=== PATIENT | female | born 1970 | race Caucasian/White ===

== ENCOUNTER 2024-09-06 18:17 | Emergency (ER) | payer OTHER, SELFPAY ==
--- NOTE | ~2024-09-06 | XR_ITS ---
XR hand LT min 3V Ordering provider: Abdi Ortega MD History: . bite . Comparison: None. FINDINGS: BONES: No acute fracture or dislocation. JOINT SPACES: Narrowing of the distal interphalangeal joints. SOFT TISSUES: Unremarkable. IMPRESSION: No acute osseous abnormality left hand. Reviewed, dictated and finalized at location A.
[2024-09-06 19:09] VITALS: BP 146/82; PULSE 82; RESP 17; TEMP 36.5; O2SAT 98
--- NOTE | 2024-09-06 20:08 | ED.ANIMALBIT ---
HPI - Animal Bite General Chief Complaint: Animal Bite Stated Complaint: dog bite Time Seen by Provider: 09/06/24 19:30 History of Present Illness HPI narrative: Patient is a 54-year-old female who presents emergency department this evening status post a dog bite to her left hand. Patient states that this was her dog and she was trying to break up a fight between her 2 dogs and accidentally got bit. Patient has 2 wounds 1 to the palmar aspect and 1 to the dorsum of her left hand. Admits that the dog is up-to-date on all immunizations. Patient's tetanus is not up-to-date. No additional symptoms or concerns at this time. Related Data Allergies Allergy/AdvReac Type Severity Reaction Status Date / Time No Known Allergies Allergy Verified 09/06/24 19:13 Review of Systems Review of Systems: All systems are reviewed and are negative unless stated otherwise in the HPI. Exam Narrative: General: Alert, awake, afebrile, in no acute distress. HEENT: PERRL, no rhinorrhea, no post nasal drip, oropharynx clear. Cardiovascular: Regular rate and rhythm, no murmurs, rubs or gallops, no peripheral edema. Respiratory: Clear to auscultation bilaterally, no tachypnea, no wheezing, no rhonchi, no rubs, no respiratory distress. Abdomen: Soft, nontender, nondistended, no rebound, no guarding, no peritoneal signs. Musculoskeletal: No joint swelling or deformity, normal muscle tone. Skin: 2 cm linear laceration to the palmar aspect of the left and 4 mm puncture wound to the dorsum of the left. Neurological: Alert and oriented to person, place, and time. Follows all commands. No focal deficits, speech is clear and fluent. Course Vital Signs Vital signs: Vital Signs Temperature 97.7 F 09/06/24 19:09 Pulse Rate 82 09/06/24 19:09 Respiratory Rate 17 09/06/24 19:09 Blood Pressure 146/82 H 09/06/24 19:09 Pulse Oximetry 98 09/06/24 19:09 Oxygen Delivery Room Air 09/06/24 19:09 Temperature 97.7 F 09/06/24 19:09 Pulse Rate 82 09/06/24 19:09 Respiratory Rate 17 09/06/24 19:09 Blood Pressure 146/82 H 09/06/24 19:09 Pulse Oximetry 98 09/06/24 19:09 Oxygen Delivery Room Air 09/06/24 19:09 Procedures Laceration Laceration 1: Date: 09/06/24 Time: 21:09 Site: hand Side (If applicable): left Size (cm): 2 Description: linear Depth: simple, single layer Local Anesthetic: lidocaine 1% Amount of anesthesia used (mL): 2 Pre-repair: wound explored, irrigated, minor debridement and deep structures intact ====== Skin Level ====== Skin layer closed with: nylon Size (cm): 5-0 Number of sutures: 1 Technique: simple, interrupted ====== Subcutaneous Layer ====== ====== Muscle Layer ====== ====== Tendon Layer ====== MDM - Animal Bite MDM Narrative Medical decision making narrative: The patient was evaluated by myself in the emergency department. History is obtained from patient who is an independent historian and physical exam was performed. External medical records were reviewed at this time. Patient was administered her 1st dose of Augmentin in the emergency department. Imaging studies obtained included left hand x-ray which was independently interpreted by me revealing no acute findings, which is pending final radiology interpretation. Differential diagnosis considerations include abrasion, laceration, dog bite, retained foreign bodies. Comorbidities impacting this visit include none. I have evaluated and discussed social determinants of health with the patient that could potentially impact subsequent diagnosis and treatment plans. On repeat assessment of the patient, reevaluation revealed that the patient is doing well and is in no acute distress. Patient symptoms have improved since she arrived to our emergency department. Repeat vital signs were all reviewed and noted to be stable. Dif
[2024-09-06 21:11] VITALS: BP 142/84; PULSE 74; RESP 16; TEMP 36.8; O2SAT 98
[2024-09-06] MEDS: AMOXICILLIN/CLAVULANATE K 875-125 MG TAB 1 TABLET PO (21:16)
[2024-09-06] MEDS: TETANUS,DIPHTHERIA,AC PERTUSSIS ADULT (0.5 ML) BOOSTRIX IM (21:17)
== END 2024-09-06 21:23 | disposition home or self-care (01) ==
PROVIDERS: Emergency Provider Emergency Medicine; PCP Nurse Practitioner Family
DX: S61.452A Open bite of left hand, initial encounter (principal); Z23 Encounter for immunization; W54.0XXA Bitten by dog, initial encounter
CPT/HCPCS: 12001; 73130; 90471; 90715; 99283; A9270